=== PATIENT | male | born 1975 | race Caucasian/White ===

== ENCOUNTER 2018-10-11 23:40 | Emergency (ER) | payer OTHER, MEDICAID, SELFPAY ==
[2018-10-11 23:40] VITALS: BP 148/80; PULSE 71; RESP 28; TEMP 37.2; O2SAT 99
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
[2018-10-11 23:56] LABS: Add Manual Diff / Slide Review NO; Basophils Percent Auto 1.3 % (0-2); Hematocrit 39.5 % (41-53); Hemoglobin 13.3 g/dL (13.5-17.5); Lymphocytes Percent Auto 35.1 % (25-40); Mean Corpuscular HGB Conc 33.8 % (30-36); Mean Corpuscular Hemoglobin 31.3 PG (26-34); Mean Corpuscular Volume 92.5 fL (80-100); Monocytes Percent Auto 3.6 % (3-14); Neutrophils Absolute Auto 7500 /uL (3000-5900); Platelet Count 268 X10^3/uL (150-400); Red Blood Cell Count 4.27 X10^6/uL (4.5-5.9); Red Cell Distribution Width 13.7 % (11.6-14.8); White Blood Cell Count 12.8 X10^3/uL (4.5-11.0)
[2018-10-12] LABS: Alanine Aminotransferase 36 IU/L (21-72); Albumin 4.5 g/dL (3.5-5.0); Albumin Globulin Ratio 1.7 (1.0-2.8); Alkaline Phosphatase 48 U/L (38-126); Amylase 101 U/L (30-110); Aspartate Aminotransferase 58 IU/L (17-59); BUN Creatinine Ratio 16.2 (6-22); Bilirubin Total 0.4 mg/dL (0.2-1.3); Blood Urea Nitrogen 21 mg/dL (9-20); Calcium 9.1 mg/dL (8.4-10.2); Carbon Dioxide 27 mmol/L (22-32); Chloride 102 mmol/L (98-107); Estimated Glomerular Filt Rate > 60.0 mL/min (>60); Globulin 2.6 g/dL (1.7-4.1); Glucose 92 mg/dL (70-100); HEMOLYSIS 37 (0-50); Lipase 147 U/L (23-300); Potassium 4.4 mmol/L (3.4-5.1); Sodium 142 mmol/L (137-145); Total Protein 7.1 g/dL (6.3-8.2)
--- NOTE | 2018-10-12 | PC.NURSE ---
Pt was accompanied to CT with Dr Washburn and Jessica RN. Pelvic binder placed while in CT.
[2018-10-12 00:12] VITALS: BP 140/79; PULSE 72; RESP 21; O2SAT 100
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
--- NOTE | 2018-10-12 00:21 | PC.NURSE ---
Assited along with Jessica RN and CRISTINA Ashraf to log roll for Dr Washburn to staple head laceration.
--- NOTE | 2018-10-12 00:24 | PC.NURSE ---
CRISTINA Lopez attempted to reach Deborah Tanner, pt's mother. No answer, voicemail left.
[2018-10-12 00:28] LABS: Ethanol (ETOH) < 10 mg/dL
[2018-10-12] MEDS: KETAMINE 500 MG/5 ML INJ 10 MG IV ×3 (00:34→02:47)
--- NOTE | 2018-10-12 00:37 | PC.NURSE ---
16 [place] lawson placed by CRISTINA Lopez.
[2018-10-12 00:44] VITALS: BP 144/123; PULSE 79; RESP 14; O2SAT 98
[2018-10-12 00:47] LABS: Appearance Urine UA CLEAR; Bilirubin Urine UA NEGATIVE (NEGATIVE); Color Urine UA YELLOW; Glucose Urine UA NEGATIVE (Normal); Ketones Urine UA NEGATIVE (NEGATIVE); Leukocyte Esterase Urine UA NEGATIVE (NEGATIVE); Nitrite Urine UA NEGATIVE (Negative); Occult Blood Urine UA 3+ (Negative); Protein Urine UA 1+ (Negative); Urobilinogen Urine UA 0.2 E.U./dL (0.2); pH Urine UA 6.5 (4.5-8.0)
[2018-10-12 00:52] LABS: Bacteria Urine None Seen
[2018-10-12 01:00] VITALS: BP 134/85; BP 167/54; PULSE 76; PULSE 81; RESP 17; RESP 20; O2SAT 96; O2SAT 98
[2018-10-12 01:01] LABS: RBC Urine 10-30/HPF (0-5/HPF); WBC Urine 0-1/HPF (0-5/HPF)
[2018-10-12 01:02] LABS: Culture Indicated Urine Cult Not Indicated; Hyaline Casts Urine 0-1/LPF
[2018-10-12 01:59] VITALS: BP 137/81; PULSE 90; RESP 23; O2SAT 96
[2018-10-12] MEDS: diazePAM 10 MG/2 ML SYRINGE 2 MG IV (02:47)
== END 2018-10-12 02:47 | disposition short-term general hospital (02) ==
PROVIDERS: Emergency Provider Emergency Medicine
DX: S01.01XA Laceration without foreign body of scalp, initial encounter (principal); S32.591A Other specified fracture of right pubis, initial encounter for closed fracture; S32.592A Other specified fracture of left pubis, initial encounter for closed fracture; V19.9XXA Pedal cyclist (driver) (passenger) injured in unspecified traffic accident, initial encounter
CPT/HCPCS: 12005; 36415; 70450; 71045; 71260; 72125; 72170; 74177; 80053; 80320; 81003; 81015; 82150; 83690; 85025; 86850; 86870; 86900; 86901; 96374; 96375; 96376; 99282; 99291; G0390; J3360; Q9967

== ENCOUNTER → 2018-11-29 08:48 | Outpatient (CLI) | payer OTHER, MEDICAID, SELFPAY ==
[2018-11-29 10:12] LABS: Add Manual Diff / Slide Review NO; Basophils Absolute Auto 100 /uL (0-100); Basophils Percent Auto 0.5 % (0-2); Eosinophils Absolute Auto 100 /uL (0-450); Hematocrit 44.3 % (41-53); Hemoglobin 14.5 g/dL (13.5-17.5); Lymphocytes Absolute Auto 2000 /uL (1100-4500); Mean Corpuscular HGB Conc 32.8 % (30-36); Mean Corpuscular Hemoglobin 30.9 PG (26-34); Mean Corpuscular Volume 94.2 fL (80-100); Monocytes Absolute Auto 600 /uL (0-900); Monocytes Percent Auto 5.1 % (3-14); Neutrophils Absolute Auto 8200 /uL (1500-7000); Neutrophils Percent Auto 75.4 % (50-75); Platelet Count 333 X10^3/uL (150-400); Red Cell Distribution Width 12.5 % (11.6-14.8); White Blood Cell Count 10.9 X10^3/uL (4.5-11.0)
[2018-11-29 10:25] LABS: Alanine Aminotransferase 39 IU/L (21-72); Albumin Globulin Ratio 1.4 (1.0-2.8); Alkaline Phosphatase 68 U/L (38-126); Aspartate Aminotransferase 31 IU/L (17-59); BUN Creatinine Ratio 18.9 (6-22); Bilirubin Total 0.6 mg/dL (0.2-1.3); Blood Urea Nitrogen 17 mg/dL (9-20); Calcium 9.8 mg/dL (8.4-10.2); Carbon Dioxide 29 mmol/L (22-32); Chloride 101 mmol/L (98-107); Cholesterol 202 mg/dL (140-199); Estimated Glomerular Filt Rate > 60.0 mL/min (>60); Globulin 3.6 g/dL (1.7-4.1); Glucose 93 mg/dL (70-100); HDL Cholesterol 67 mg/dL (40-60); HEMOLYSIS < 15 (0-50); LDL Cholesterol Calculated 118 mg/dL (<100); Potassium 4.7 mmol/L (3.4-5.1); Sodium 140 mmol/L (137-145); Total Protein 8.6 g/dL (6.3-8.2); Triglycerides 87 mg/dL (35-150)
[2018-11-29 11:01] LABS: Ferritin 99.9 ng/mL (17.9-464)
[2018-11-29 11:16] LABS: Vitamin B12 453 pg/mL (239-931)
[2018-11-29 12:20] LABS: HEMOLYSIS < 15 (0-50); Iron 143 ug/dL (49-181)
[2018-11-29 12:33] LABS: Percent Iron Saturation 43 % (20-50); Total Iron Binding Capacity 335 ug/dL (261-462); Transferrin 290 mg/dL (206-381)
== END ==
PROVIDERS: Visit Provider Physician Assistant
DX: G47.9 Sleep disorder, unspecified (principal); R51 Headache; R53.83 Other fatigue; Z13.220 Encounter for screening for lipoid disorders; Z13.6 Encounter for screening for cardiovascular disorders; Z87.81 Personal history of (healed) traumatic fracture; Z87.828 Personal history of other (healed) physical injury and trauma
CPT/HCPCS: 36415; 80053; 80061; 82607; 82728; 83540; 83550; 84443; 85025

== ENCOUNTER → 2018-12-27 07:31 | Outpatient (CLI) | payer OTHER, MEDICAID, SELFPAY ==
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
== END ==
PROVIDERS: Family Provider Physician Assistant; PCP Physician Assistant; Visit Provider Physician Assistant
DX: R51 Headache (principal); R42 Dizziness and giddiness; R55 Syncope and collapse
CPT/HCPCS: 70551

== ENCOUNTER 2019-07-11 09:00 | Outpatient (RCR) | payer OTHER, MEDICAID, SELFPAY ==
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
--- NOTE | 2019-03-12 15:30 | PT.OPPOC ---
Current Diagnoses Multiple fractures of pelvis with stable disruption of pelvic ring, subsequent encounter for fracture with routine healing (03/12/19) Provider Visit Care Team Role Provider Type Other Providers Specialty: Address: Phone: Fax: Email: Elda Chatman PA-C Attending Provider [employer] C[employer] Family Provider Primary Care Provider Specialty: Medical Address: [address] [place] [address], [id number] Email: [email or web address] Plan Of Care PT-OP-T Assessment and Plan Start: 12/18/18 09:46 Freq: Status: Active Protocol: Document 03/12/19 09:05 LRN (Rec: 03/12/19 10:05 LRN [id number]) Physical Therapy Assessment Rehab Potential Rehabilitation Potential Good Impairments Impairments Activity Tolerance Balance Functional Activities Functional Mobility Gait Pain Posture ROM Soft Tissue Mobility Strength Other Concerns Age Related Concerns Impact on job and home. Barriers to Rehabilitation Lives alone. Does not drive, transportation is walking. History of alcohol, drug use & smoker. Goals Gait Impairment Pt reqs use of walking stick to normalize upper body positioning w/gait Short Term Goal (STG) Pt will be able to walk with an assistive device with a normal gait pattern. STG Duration 01/11/19 GOAL MET. Machine Bobbin Winder Goal (LTG) Pt will be able to walk without the use of an assistive device and mild trunk sway. LTG Duration 03/17/19 (01/11/19: Goal partially met. Mild trunk sway for short distances) Mobility Impairment Decreased hip and trunk mobility Skilled Nursing Goal (LTG) Pt will demonstrate improved hip and trunk mobility for tolerance to return to work. LTG Duration 02/11/19 (02/01/19: GOAL MET) Strength Impairment Decreased LE & core strength Short Term Goal (STG) Pt will be able to maintain core stability with LE strengthening ex's to minimize pain and improve activity tolerance. 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 LTG Duration 02/11/19 Self care Impairment Pt lacks an independent self care HEP Skilled Nursing Goal (LTG) Pt will be independent on a self care HEP to progress his level of independence and safety with gait. LTG Duration 03/17/19 Progress Towards Goals Progress Towards Goals Progressing Toward Goals Progress Comments ............Gait: STG MET (01/11/19). LTG Partially Met (01/11/19). Increased trunk sway with fatigue. Pt is able to ambulate without an assistive device and mild sway when not fatigued. Mobility: GOAL MET (02/01/19). Strength: STG: MET. LTG: Plan is to try returning to work 02/11/19 parttime Self Care: Progressing HEP. Assessment Summary Assessment Pt has returned today after almost 30 days abscence due to scheduling difficulties and his return to work. He returns with decreased hip rotational ability and increased Ischial tuberosity pain mainly on the left with palpation, and reports of pain with standing and sitting; probably due to decreased mobility and increased strain on the hip rotators. He demonstrates decreased core stability while testing for leg strength, which may be a reason for his increased back pain with return to work. 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 Scheduling the pt has been difficult due to communication difficulties; therefore extending the time frame for therapy is needed to maximize his available visits if needed. Physical Therapy Plan Frequency and Duration Frequency of Treatment 1x/Week Plan of Care Start Date 03/12/19 Plan of Care End Date 07/12/19 Therapeutic Interventions Therapeutic Interventions Balance Training Coordination Training Gait Training Home Exercise Program Joint Mobilizations Manual Therapy Neuromuscular Re-education Patient/Caregiver Education Self-Care/Home Management Soft Tissue Mobilization Taping Therapeutic Activities Therapeutic Exercises Modalities Cold Pack/Ice Massage Hot Packs Ultrasound Next Visit Focus/Plan Next Note Type Treatment Note Next Visit Plan Continue therapy 1x/week for manual therapy to decrease sitting pain & progression of his HEP of strengthening, ROM ex's of core & LE's and strengthening of the back for return to work greater hours/ week. Plan of Care Dates Plan of Care Start Date 03/12/19 Plan of Care End Date 07/12/19 Please Sign and Return: I have reviewed this Plan of Care and certify that the skilled therapy services above are required to meet the patient?s needs. Physician Signature Date Printed Name and Credentials Clinical Instructor Signature Printed Name and Credentials
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
== END 2019-07-12 08:11 | disposition home or self-care (01) ==
LOC: PHYS 09:00
PROVIDERS: Family Provider Physician Assistant; PCP Physician Assistant; Visit Provider Physician Assistant
DX: S32.810D Multiple fractures of pelvis with stable disruption of pelvic ring, subsequent encounter for fracture with routine healing (principal)
CPT/HCPCS: 97010; 97110; 97116; 97140; 97162; 97535